=== PATIENT | female | born 1985 | race African-American/Black ===

== ENCOUNTER 2019-10-12 13:45 | Emergency (ER) | payer OTHER ==
[2019-10-12 13:49] VITALS: BP 133/77; PULSE 112; TEMP 97.9; BMI 82.3
[2019-10-12] MEDS ORDERED: IBUPROFEN 600 MG TABLET (FP) PO ONE ×2 (14:35→14:38)
--- NOTE | 2019-10-12 15:20 | PDOC ---
History of Present Illness - General Chief Complaint: Abscess Boil Stated Complaint: ABSCESS Time Seen by Provider: 10/12/19 14:03 History Source: Patient Exam Limitations: No Limitations Past History - Past Medical History Allergies/Adverse Reactions: Allergies Allergy/AdvReac Type Severity Reaction Status Date / Time No Known Allergies Allergy Verified 10/12/19 13:49 Home Medications: Ambulatory Orders Doxycycline Monohydrate [Mondoxyne Nl] 100 mg PO BID 03/21/16 Anemia: No Asthma: No Cancer: No Cardiac Disorders: No CVA: No COPD: No CHF: No Dementia: No Diabetes: No GI Disorders: No Disorders: No HTN: No Hypercholesterolemia: No Liver Disease: No Seizures: No Thyroid Disease: No Other medical history: PCOS - Surgical History Abdominal Surgery: No Appendectomy: No Cardiac Surgery: No Cholecystectomy: No Lung Surgery: No Neurologic Surgery: No Orthopedic Surgery: No - Reproductive History (#): 2 Para: 1 Therapeutic (s) & number: No Spontaneous : 1 - Psycho Social/Smoking Cessation Hx Smoking History: Never smoked Have you smoked in the past 12 months: No Number of Cigarettes Smoked Daily: 4 Information on smoking cessation initiated: No Hx Alcohol Use: No Drug/Substance Use Hx: No Substance Use Type: None Hx Substance Use Treatment: No *Physical Exam - Vital Signs Last Vital Signs Temp Pulse Resp BP Pulse Ox 97.9 F 112 H 20 133/77 100 10/12/19 13:47 10/12/19 13:47 10/12/19 13:47 10/12/19 13:47 10/12/19 13:47 - Physical Exam General Appearance: No: Apparent Distress Female Pelvic Exam: positive: other (around 2 cm bartholin cyst palpable along R side, palpable on deep palpation, area feels indurated but not fluctuant, no surrounding cellulitis, no streaking). negative: discharge Gastrointestinal/Abdominal: positive: Soft. negative: Tender Neurologic: positive: Alert, Normal Mood/Affect Procedures - Incision and Drainage I&D Site: Right: Bartholin Betadine cleansed: Yes Anesthesia: 1% Lidocaine Blade Size: 11 Attempts: 1 Iodinated Packin/2 in Plain Packing: No Complications: none Dressing: Yes ED Treatment Course - Medications Given in the ED: ED Medications Discontinued Medications Generic Name Dose Route Start Last Admin Trade Name Freq PRN Reason Stop Dose Admin Ibuprofen 600 mg 10/12/19 14:35 10/12/19 14:39 Motrin - PO 10/12/19 14:36 600 mg ONCE ONE Administration Medical Decision Making - Medical Decision Making 33 y/o F with hx of PCOS presents with bump along vaginal region from yesterday. Has hx of bartholin abscess; mentions the first time, the site drained on its own and the second time, patient was seen 2015 and I&D was done. Mentions does shave site at times. Denies fever, vaginal discharge. Bedside US confirms pocket of fluid I&D done but mostly serosanguinous drainage Site was packed No current need for abx given no evidence of surrounding cellulitis and patient is not immunosuppressed 10/12/19 15:23 Discharge - Discharge Information Problems reviewed: Yes Clinical Impression/Diagnosis: Bartholin cyst Disposition: HOME - Admission No - Additional Discharge Information Prescription Drug Monitoring Program (I-STOP) results: I-STOP not reviewed - Follow up/Referral - Patient Discharge Instructions Patient Printed Discharge Instructions: DI for Bartholin Gland Cyst Additional Instructions: Thank you for choosing [facility]. It was a pleasure taking care of you. You may take Motrin 600 mg every 6 hours by mouth as needed for mild to moderate pain. Take Motrin with food. Continue warm compresses along site Please follow-up with your investment banker in 2 days Return to the Emergency Department if your symptoms worsen or persist, you have fever, streaking from site or other concerning symptoms. - Post Discharge Activity
== END 2019-10-12 15:57 | disposition home or self-care (01) ==
LOC: JERFT 13:45
PROC: 0U9L0ZZ Drainage of Vestibular Gland, Open Approach (ICD-10-PCS; principal; 2019-10-12)
DX: N75.0 Cyst of Bartholin's gland (principal); E28.2 Polycystic ovarian syndrome
CPT/HCPCS: 99282-25

== ENCOUNTER 2019-10-14 16:15 | Emergency (ER) | payer OTHER ==
--- NOTE | 2019-10-14 16:27 | PDOC ---
Rapid Medical Evaluation Chief Complaint: Vaginal Sxs Time Seen by Provider: 10/14/19 16:24 Medical Evaluation: Allergies Allergy/AdvReac Type Severity Reaction Status Date / Time No Known Allergies Allergy Verified 10/14/19 16:24 10/14/19 16:25 33 year old s/p I& D bartholin cyst to right labia on 10/12/2019. patient reports increased pain. denies fever chills. here for a wound evaluation. PE: patient alert ox3. A: bartholin cyst wound patient to the ER for further management of care. Discharge Disposition - Diagnosis Wound abscess - Referrals - Patient Instructions - Post Discharge Activity
[2019-10-14 16:38] VITALS: BMI 37.3
[2019-10-14] MEDS ORDERED: LIDOCAINE HCL 1%, 10 MG/ML (20ML VIAL) ONE (17:45)
--- NOTE | 2019-10-14 18:21 | PDOC ---
*Physical Exam - Vital Signs Last Vital Signs Temp Pulse Resp BP Pulse Ox 98.5 F 114 H 17 145/79 99 10/14/19 16:24 10/14/19 16:24 10/14/19 16:24 10/14/19 16:24 10/14/19 16:24 - Physical Exam Comments: 10/14/19 18:16 Awake alert no acute distress exam performed with the PA at bedside demonstrates a right-sided large inferior Rasheed and cyst fluctuant area tender to palpation no current drainage small area of incision nodes only blood. She is awake alert and oriented x3 Medical Decision Making - Medical Decision Making 10/14/19 18:17 33-year-old female history of 2 prior Bartholin cyst here today for repeat evaluation for right-sided Bartholin cyst. Patient was seen in the ED 2 days ago it was small at that time and incision only showed blood. Today states the area is much more swollen and more painful states she drove herself here today On my exam patient has a large 3 x 3 cm palpable cyst versus abscess. I&D performed at the bedside with PA knee hot Díaz large purulence expressed approximately 5 cc patient tolerated the procedure well lidocaine was used for anesthesia Wurd catheter was placed will discharge patient on Bactrim as she has had many Bartholin cyst in the past is high risk for MRSA. Wound cultures were sent in addition GC chlamydia cultures were sent and are pending patient states she is in a monogamous risk relationship and overall is low risk for GC and chlamydia Discharge - Discharge Information Problems reviewed: Yes Clinical Impression/Diagnosis: Wound abscess, Bartholin's cyst Condition: Improved Disposition: HOME - Admission No - Additional Discharge Information Prescriptions: Ibuprofen [Motrin -] 600 mg PO TID PRN #90 tablet MDD 3 PRN Reason: Pain Sulfamethoxazole/Trimethoprim [Bactrim Ds Tablet] 1 each PO BID #14 tablet - Follow up/Referral Referrals: April Alicea [Primary Care Provider] - - Patient Discharge Instructions Patient Printed Discharge Instructions: Bartholin Gland Cyst Additional Instructions: He should take Motrin 600 mg every 8 hours as needed for pain. You have been tested for resistant infection such as MRSA he will be notified however we are treating with antibiotic that should take care of any infection please take Bactrim double strength tablet. 1 tablet twice daily for 7 days. You should seek repeat evaluation within 48 to 72 hours with your MILK HAULER if you cannot get into see your doctor he should come back to the ED for repeat evaluation return sooner for any fevers worsening pain or any concerns be sure to soak in the tub twice daily - Post Discharge Activity
[2019-10-14 18:34] VITALS: BP 139/71; PULSE 100; TEMP 98.6
[2019-10-14] MEDS ORDERED: SULFAMETHOXAZOLE/TRIMETHOPRIM 800MG/160MG D.S. TABLET PO ONE (18:35)
[2019-10-14] MEDS ORDERED: KETOROLAC TROMETHAMINE 60 MG/2 ML VIAL IM ONE (18:35)
[2019-10-14] MEDS ORDERED: FLUCONAZOLE 150 MG TABLET PO ONE (18:35)
[2019-10-14] MEDS ORDERED: FLUCONAZOLE 100 MG TABLET (UD) ONE (18:38)
[2019-10-14] MEDS ORDERED: KETOROLAC TROMETHAMINE 60 MG/2 ML VIAL ONE (18:39)
[2019-10-14] MEDS ORDERED: SULFAMETHOXAZOLE/TRIMETHOPRIM 800MG/160MG D.S. TABLET ONE (18:39)
--- NOTE | 2019-10-14 18:52 | PDOC ---
History of Present Illness - General Chief Complaint: Vaginal Sxs Stated Complaint: VAGINAL CYST Time Seen by Provider: 10/14/19 16:24 History Source: Patient Exam Limitations: No Limitations Past History - Past Medical History Allergies/Adverse Reactions: Allergies Allergy/AdvReac Type Severity Reaction Status Date / Time No Known Allergies Allergy Verified 10/14/19 16:24 Home Medications: Ambulatory Orders Ibuprofen [Motrin -] 600 mg PO TID PRN #90 tablet MDD 3 10/14/19 Sulfamethoxazole/Trimethoprim [Bactrim Ds Tablet] 1 each PO BID #14 tablet 10/14 Anemia: No Asthma: No Cancer: No Cardiac Disorders: No CVA: No COPD: No CHF: No Dementia: No Diabetes: No GI Disorders: No Disorders: No HTN: No Hypercholesterolemia: No Liver Disease: No Seizures: No Thyroid Disease: No - Surgical History Abdominal Surgery: No Appendectomy: No Cardiac Surgery: No Cholecystectomy: No Lung Surgery: No Neurologic Surgery: No Orthopedic Surgery: No - Reproductive History (#): 2 Para: 1 Therapeutic (s) & number: No Spontaneous : 1 - Psycho Social/Smoking Cessation Hx Smoking History: Never smoked Have you smoked in the past 12 months: No Number of Cigarettes Smoked Daily: 4 Information on smoking cessation initiated: No Hx Alcohol Use: No Drug/Substance Use Hx: No Substance Use Type: None Hx Substance Use Treatment: No *Physical Exam - Vital Signs Last Vital Signs Temp Pulse Resp BP Pulse Ox 98.6 F 100 H 19 139/71 99 10/14/19 18:33 10/14/19 18:33 10/14/19 18:33 10/14/19 18:33 10/14/19 18:33 - Physical Exam General Appearance: No: Apparent Distress Female Pelvic Exam: positive: other (large R bartholin cyst, around 4x4 cm, no erythema, no streaking; +cottage-like vaginal discharge noted, no CMT). negative: CMT, adnexal tenderness Gastrointestinal/Abdominal: positive: Normal Bowel Sounds, Soft. negative: Tender, Distended, Guarding, Rebound Neurologic: positive: Alert, Normal Mood/Affect Procedures - Incision and Drainage I&D Site: Right: Bartholin Betadine cleansed: Yes Anesthesia: 1% Lidocaine Blade Size: 11 Attempts: 1 Plain Packing: No (Word catheter placed) ED Treatment Course - Medications Given in the ED: ED Medications Discontinued Medications Generic Name Dose Route Start Last Admin Trade Name Griffin PRN Reason Stop Dose Admin Fluconazole 150 mg 10/14/19 18:35 10/14/19 18:43 Fluconazole PO 10/14/19 18:36 150 mg ONCE ONE Administration Ketorolac Tromethamine 60 mg 10/14/19 18:35 10/14/19 18:43 Toradol Injection - IM 10/14/19 18:36 60 mg ONCE ONE Administration Trimethoprim/Sulfamethoxazole 1 each 10/14/19 18:35 10/14/19 18:42 Bactrim Ds - PO 10/14/19 18:36 1 each ONCE ONE Administration Medical Decision Making - Medical Decision Making 33 y/o F presents for wound check s/p I&D of bartholin cyst 2 days ago. Patient mentions still in pain; has appt with [employer]AFF [employer] DEF[employer] OFFICER but it is not until 3 days later and they could not see her today. Denies fever. Also mentions slight vaginal itching. Otherwise denies unusual vaginal discharge. Denies abd pain, n/v. Packing removed I&D done from inside labia minora with significant purulent drainage expressed Word catheter placed GC testing sent (low suspicion for STD) Wound culture also sent as this is patient's 3rd episode of this D/W Dr. Malone - recommends Bactrim as well Patient also noted with vaginal yeast infection - given Fluconazole 10/14/19 18:46 Discharge - Discharge Information Problems reviewed: Yes Clinical Impression/Diagnosis: Bartholin's gland abscess Condition: Improved Disposition: HOME - Admission No - Additional Discharge Information Prescriptions: Ibuprofen [Motrin -] 600 mg PO TID PRN #90 tablet MDD 3 PRN Reason: Pain Sulfamethoxazole/Trimethoprim [Bactrim Ds Tablet] 1 each PO BID #14 tablet - Follow up/Referral Referrals: April Alicea [Primary Care Provider] - - Patient Discharge Instructions Patient Printed Discharge Instructions: Bartholin Gland Cyst Additional Instructions: Please Motrin 600 mg every 8 hours as needed for pain. You have been tested for resistant infection such as MRSA and will be notified. However, we are treating with antibiotic that should take care of any infection. Please take Bactrim double strength tablet 1 tablet twice daily for 7 days. You will also be informed of any STD testing as well. You should seek repeat evaluation within 48 to 72 hours with your CRUISE AGENT. If you cannot get into see your doctor, you should come back to the ED for repeat evaluation return sooner for any fevers, worsening pain or any concerns. Be sure to soak in the tub twice daily - Post Discharge Activity
== END 2019-10-14 18:53 | disposition home or self-care (01) ==
LOC: JER 16:15
PROC: 3E0233Z Introduction of Anti-inflammatory into Muscle, Percutaneous Approach (ICD-10-PCS; principal; 2019-10-14)
PROC: 0U9L00Z Drainage of Vestibular Gland with Drainage Device, Open Approach (ICD-10-PCS; 2019-10-14)
DX: N75.1 Abscess of Bartholin's gland (principal); B37.3 Candidiasis of vulva and vagina
CPT/HCPCS: 36415; 56420; 87070; 87077; 87186; 87205; 87491; 87591; 96372; 99282-25